=== PATIENT | male | born 1980 | race Caucasian/White ===

== ENCOUNTER 2020-07-05 13:39 | Inpatient (IN) | payer MEDICARE, OTHER ==
[~2020-07-05] VITALS: Ht 185.4 cm; Wt 139.6 kg
[2020-07-05] MEDS ORDERED: InsuLIN REG 1unit/0.01ml Soln (100units/ml) IV ONE (14:15)
[2020-07-05] MEDS ORDERED: ONDANSETRON HCL 4 MG/2 ML VIAL IV ONE (14:15)
[2020-07-05] MEDS ORDERED: SODIUM CHLORIDE 0.9% 1,000 ML IV ONE (14:15)
[2020-07-05 14:54] LABS: Basophils # (auto) 0.1 10 ^3/uL (0-0.2); Eosinophils # (auto) 0.4 10 ^3/uL (0-0.8); Eosinophils % (auto) 4.3 % (0.0-7.0); Hematocrit 42.9 % (41.0-53.0); Hemoglobin 14.3 g/dL (13.5-17.5); Lymphocytes # (auto) 0.7 10 ^3/uL (0.4-5.4); Lymphocytes % (auto) 8.6 % (10.0-50.0); Mean Corpuscular Hemoglobin 29.8 pg (28.0-32.0); Mean Corpuscular Hgb Conc. 33.4 g/dL (32.0-36.0); Monocytes # (auto) 0.5 10 ^3/uL (0-1.3); Monocytes % (auto) 5.7 % (0.0-12.0); Neutrophils # (auto) 6.6 10 ^3/uL (1.6-8.6); Neutrophils % (auto) 80.4 % (37.0-80.0); Platelet Count (auto) 208 10^3/uL (140-450); Red Blood Cells 4.81 10^6/uL (4.5-5.90); Red Cell Distribution Width 13.8 % (11.8-14.3); White Blood Cell 8.2 10^3/uL (4.4-10.8)
[2020-07-05 15:11] LABS: Albumin 3.5 g/dL (3.4-5.0); Calcium 8.5 mg/dL (8.5-10.1); Magnesium 2.3 mg/dL (1.6-2.6); Potassium 4.7 mmol/L (3.5-5.1)
[2020-07-05 15:20] LABS: BUN/Creatinine Ratio 12.7; Bilirubin, Total 0.8 mg/dL (0.2-1.0); Total Protein 7.4 g/dL (6.4-8.2)
[2020-07-05] MEDS ORDERED: LORazepam 0.5 MG TAB PO PRN (18:30)
[2020-07-05] MEDS ORDERED: KETOROLAC TROMETH 60MG/2ML VIAL IM PRN (18:30)
[2020-07-05] MEDS ORDERED: NITROGLYCERIN 0.4 MG SL TAB SL PRN (18:30)
[2020-07-05] MEDS ORDERED: ACETAMINOPHEN 500 MG TAB PO PRN (18:30)
[2020-07-05] MEDS ORDERED: MORPHINE SULF INJ 2 MG/ML SYRINGE 1ML IV PRN (18:30)
[2020-07-05] MEDS ORDERED: LABETALOL HCL 5 MG/ML 4ML SYRINGE IV PRN (18:30)
[2020-07-05] MEDS ORDERED: DEXTROSE (50%) 50ML SYRG IV PRN (18:30)
[2020-07-05] MEDS ORDERED: InsuLIN R (HUMAN) 100 UNITS in SODIUM CHL 0.9% 99 ML IV SCH (18:30)
[2020-07-05] MEDS ORDERED: DOCUSATE CALCIUM 240 MG CAP PO PRN (18:30)
[2020-07-05] MEDS ORDERED: INSULIN LANTUS (GLARGINE) 1 /0.01ml (100units/ml) SC ONE (18:30)
[2020-07-05] MEDS ORDERED: InsuLIN REG 1unit/0.01ml Soln (100units/ml) ONE (19:38)
[2020-07-05 19:51] LABS: Basophils # (auto) 0 10 ^3/uL (0-0.2); Basophils % (auto) 0.7 % (0.0-2.0); Eosinophils # (auto) 0.3 10 ^3/uL (0-0.8); Eosinophils % (auto) 4.6 % (0.0-7.0); Hematocrit 41.6 % (41.0-53.0); Hemoglobin 14.8 g/dL (13.5-17.5); Lymphocytes # (auto) 0.9 10 ^3/uL (0.4-5.4); Lymphocytes % (auto) 13.4 % (10.0-50.0); Mean Corpuscular Hemoglobin 30.1 pg (28.0-32.0); Mean Corpuscular Hgb Conc. 35.5 g/dL (32.0-36.0); Monocytes # (auto) 0.4 10 ^3/uL (0-1.3); Monocytes % (auto) 6.3 % (0.0-12.0); Neutrophils # (auto) 5.2 10 ^3/uL (1.6-8.6); Nucleated Red Blood Cells % 0.2 %; Platelet Count (auto) 197 10^3/uL (140-450); Red Cell Distribution Width 13.7 % (11.8-14.3)
[2020-07-05] MEDS: ACCU-CHEK COMFORT CURVE STRIP VI SCH ×3 (20:00→22:32)
[2020-07-05] MEDS: SODIUM CHLORIDE 0.9% 1,000 ML IV SCH ×2 (20:04→20:30)
[2020-07-05 20:07] LABS: BUN/Creatinine Ratio 14.6; Calcium 8.2 mg/dL (8.5-10.1); Magnesium 2.3 mg/dL (1.6-2.6); Phosphorus 3.1 mg/dL (2.5-4.90)
[2020-07-05 21:22] VITALS: BP 134/91
--- NOTE | 2020-07-05 21:23 | NUR ---
Admit to [facility] NICOLLE SCHMIDT admitted to [facility] via gurney on game trapper. Patient transferred to bed, connected to unit monitoring and weighed by bed scale. Patient oriented to Nubia linton RN, unit, room, bed, and unit policies regarding patient care and visiting hours. All questions and concerns addressed, patient verbalized understanding. NOTE:
[2020-07-05 21:40] VITALS: BP 134/91
[2020-07-05] MEDS ORDERED: SODIUM CHLORIDE 0.9% 1,000 ML IV SCH (22:30)
--- NOTE | 2020-07-05 22:30 | NUR ---
[facility] SWAB SENT
--- NOTE | 2020-07-05 23:00 | NUR ---
urine sent for urinalysis as ordered
[2020-07-05] MEDS ORDERED: NORPTMEDS CO (23:20)
[2020-07-05 23:37] LABS: Urine Bacteria NONE SEEN /hpf (None Seen); Urine Blood Negative /uL (Negative); Urine Mucus FEW (None Seen); Urine Specific Gravity 1.041 (1.001-1.035); Urine WBC <1 /hpf (0 - 3)
[2020-07-06] VITALS (9 sets, daily range): BP systolic 107–142; BP diastolic 47–95
[2020-07-06] MEDS: ACCU-CHEK COMFORT CURVE STRIP VI SCH ×12 (00:10→23:35)
[2020-07-06] MEDS: SODIUM CHLORIDE 0.9% 1,000 ML IV SCH ×4 (00:21→19:54)
--- NOTE | 2020-07-06 00:22 | NUR ---
lab staff for blood draw
[2020-07-06 01:14] LABS: BUN/Creatinine Ratio 13.9; Calcium 7.7 mg/dL (8.5-10.1); Potassium 3.4 mmol/L (3.5-5.1)
--- NOTE | 2020-07-06 03:10 | NUR ---
POTASSIUM LOW INFORMED HOSPITALIST JOESPH OF POTASSIUM 3.4 MMOL PATIENT IS ON INSULIN GTT TELEPHONE ORDER RECEIVED AND VERIFIED
[2020-07-06] MEDS ORDERED: POTASSIUM CHL 20 Meq TABLET PO ONE (03:15)
[2020-07-06 07:28] LABS: Potassium 3.5 mmol/L (3.5-5.1)
[2020-07-06 07:37] LABS: BUN/Creatinine Ratio 12.9; Calcium 7.5 mg/dL (8.5-10.1)
--- NOTE | 2020-07-06 07:40 | NUR ---
REPORT REPORT GIVEN TO TRISH COOK
--- NOTE | 2020-07-06 08:30 | NUR ---
ASSESSMENT PT AWAKE AND A/O X4. VERY TALKATIVE. FOLLOWS SIMPLE COMMANDS. PT ON ROOM AIR WITH O2 SATS OF 94%. LUNGS CLEAR THROUGHOUT. HEART RATE REGULAR AND STRONG PALPABLE PULSES TO ALL EXTREMITIES WITH NO EDEMA NOTED. ABD SOFT WITH + BOWEL SOUNDS. PT STATES LAST BM WAS YESTERDAY. SPT ON REGULAR INSULIN DRIP AT 2 UNITS/HR WITH BLOOD SUGAR AT 0730 OF 236. IVF AND INSULIN DRIP TO #20 TO THE LEFT HAND, SITE BENIGN. DENIES ANY PAIN OR SOB. WANTS TO GO TO THE BATHROOM TO USE THE URINAL. ASSISTED PT TO THE SIDE OF THE BED AND THEN WHEN HE TOLERATED THAT X 1 MINUTE , HE SAT ON THE SIDE OF THE BED FOR 2-3 MINUTES. HE TOLERATED SITTING ON THE SIDE OF THE BED, I ASSISTED HIM TO THE BATHROOM, WHICH HE TOLERATED WELL. PT THEN USED THE URINAL TO VOID 700 ML CLEAR DARK YELLOW URINE. PT THEN BACK TO BED AND VSS ARE STABLE. CONTINUE TO MONITOR.
--- NOTE | 2020-07-06 10:43 | NUR ---
MD/PHONE SPOKE WITH DR HILDA BRITT REGARDING WHETHER TO ADMINISTER ORDERED LANTUS INSULIN PT IS STILL ON THE INSULIN DRIP. HOLD DOSES FOR NOW AND SEE HOW SUGARS TREND AND HE WILL BE BY TO SEE THE PT THIS AFTERNOON.
--- NOTE | 2020-07-06 11:00 | NUR ---
PT REFUSED HIS ORDERED LOVENOX AND PROTONIX. "I DON'T FEEL LIKE I NEED THEM".
[2020-07-06] MEDS: PANTOPRAZOLE 40 MG TAB PO SCH (11:02)
[2020-07-06] MEDS: ENOXAPARIN SOD 40 MG/0.4 ML SYRINGE SC SCH (11:03)
[2020-07-06] MEDS: INSULIN LANTUS (GLARGINE) 1 /0.01ml (100units/ml) SC SCH (11:05)
--- NOTE | 2020-07-06 13:00 | NUR ---
MD VISIT SEEN BY DR HILDA BRITT. GIVE LANTUS INSULIN 15 UNITS SQ AND THEN DC INSULIN DRIP 2 HOURS LATER. CHECK BLOOD SUGAR Q 4 HOURS. NOTIFY NIGHT HOSPITALIST WITH BLOOD SUGAR AT 1999 FOR POSSIBLE MED SURG DOWNGRADE ORDER.
[2020-07-06] MEDS ORDERED: INSULIN LANTUS (GLARGINE) 1 /0.01ml (100units/ml) SC ONE (13:30)
[2020-07-06 14:08] LABS: BUN/Creatinine Ratio 11.8; Calcium 7.5 mg/dL (8.5-10.1)
--- NOTE | 2020-07-06 16:55 | NUR ---
PT'S BLOOD SUGAR OF 221 AND GIVEN 8 UNITS REGULAR INSULIN SQ PER SLIDING SCALE ORDERS AND DC'D INSULIN DRIP PER DR HILDA BRITT. MAY CALL NIGHT HOSPITALIST WITH 2000 BLOOD SUGAR RESULT FOR POSSIBLE DOWNGRADE TO MED SURG BED.
[2020-07-06] MEDS: InsuLIN REG 1unit/0.01ml Soln (100units/ml) SC SCH ×3 (17:00→23:36)
--- NOTE | 2020-07-06 19:15 | NUR ---
Opening Shift Note Recieved report and Assumed care of patient, awake and alert. No S/S of distress/SOB or pain. patient is laying bed speaking on the phone at this time.
--- NOTE | 2020-07-06 20:10 | NUR ---
Hospitalist Paged, To verify if patient can be sent to the Telemetry floor current blood sugar 315 provided 16 units insulin
--- NOTE | 2020-07-06 20:37 | NUR ---
Received call from Hospitalist Per provider patient can be downgraded to the telemetry floor.
--- NOTE | 2020-07-06 20:50 | NUR ---
Provided Report Provided Transfer to Rosa M RN for transfer to room 284A patient will be transfered via wheelchair on telemetry monitoring.
--- NOTE | 2020-07-06 22:10 | NUR ---
Received patient transfer from [facility] per wheelchair alert oriented x 4, placed in the bed comfortably, vital signs checked, not in respiratory distress.
--- NOTE | 2020-07-06 22:10 | NUR ---
[facility] pt transferred to floor NICOLLE SCHMIDT transferred to Room 284A via Wheelchair on roll over loader and All patient medications and personal belongings transfered with patient to receiving floor. Patient care transferred to [facility] endorsed to Rosa M CHAMBERS
[2020-07-07 00:06] VITALS: BP 133/88
[2020-07-07] MEDS: SODIUM CHLORIDE 0.9% 1,000 ML IV SCH ×4 (03:16→21:33)
[2020-07-07] MEDS: ACCU-CHEK COMFORT CURVE STRIP VI SCH ×6 (04:07→23:53)
[2020-07-07] MEDS: InsuLIN REG 1unit/0.01ml Soln (100units/ml) SC SCH ×5 (04:11→19:53)
--- NOTE | 2020-07-07 07:20 | NUR ---
OPENING SHIFT NOTE Assumed care of patient from hourly shift manager RN. Patient is alert and oriented x4, no signs of distress noted, patient denies pain. He was updated on the plan of care and verbalized understanding. Bed is locked, in the lowest position, side rails are up x2 and call light is in reach. Patient was encouraged to call for assistance as needed.
--- NOTE | 2020-07-07 07:25 | NUR ---
Report given to Romina Liriano, patient is resting no distress.
[2020-07-07 09:00] VITALS: BP 128/70
[2020-07-07] MEDS: ENOXAPARIN SOD 40 MG/0.4 ML SYRINGE SC SCH (09:45)
[2020-07-07] MEDS: PANTOPRAZOLE 40 MG TAB PO SCH (09:45)
[2020-07-07] MEDS: INSULIN LANTUS (GLARGINE) 1 /0.01ml (100units/ml) SC SCH (09:47)
--- NOTE | 2020-07-07 10:34 | NUR ---
BALWINDER AT BEDSIDE Updated on the patient status. Plan of care was discussed with the patient and he verbalized understanding.
[2020-07-07] MEDS ORDERED: INSULIN LANTUS (GLARGINE) 1 /0.01ml (100units/ml) SC SCH (10:45)
--- NOTE | 2020-07-07 11:32 | NUR ---
ORDER CLARIFICATION New order for lantus 15 units. order read back and verified.
[2020-07-07] MEDS ORDERED: INSULIN LANTUS (GLARGINE) 1 /0.01ml (100units/ml) SC ONE (11:45)
[2020-07-07 12:43] VITALS: BP 123/77
[2020-07-07 17:00] VITALS: BP 126/75
--- NOTE | 2020-07-07 19:53 | NUR ---
RECEIVED PATIENT FROM DAY SHIFT RN. PATIENT RESTING IN BED. NO S/S OF DISTRESS NOTED. ACCU-CHECK, BS 355, INSULIN GIVEN ORDERED. RE-EDUCATED PATIENT ON DIABETIC DIET. PATIENT VERBALIZED UNDERSTANDING. POC INSTRUCTED AND ENCOURAGED PATIENT TO CALL FOR FERMENTER OPERATOR IF NEEDED. BED IN LOWEST LOCKED POSITION WITH SIDE RAILS UPX 2. CALL MEJIA WITHIN REACH. CONTINUE TO MONITOR FOR CHANGES Q1H AND PRN
[2020-07-07 21:00] VITALS: BP 144/88
[2020-07-08] MEDS: InsuLIN REG 1unit/0.01ml Soln (100units/ml) SC SCH ×7 (00:02→23:55)
--- NOTE | 2020-07-08 00:03 | NUR ---
Accu-check, BS 168. insulin given as ordered. Reinforced on S/S of hypoglycemia. Patient verbalized understanding. Continue to monitor.
[2020-07-08] MEDS: ACCU-CHEK COMFORT CURVE STRIP VI SCH ×6 (03:53→23:45)
--- NOTE | 2020-07-08 03:53 | NUR ---
Accu-check, BS 168. insulin given as ordered. Continue to monitor.
[2020-07-08 05:00] VITALS: BP 120/67
[2020-07-08] MEDS: SODIUM CHLORIDE 0.9% 1,000 ML IV SCH ×3 (05:50→20:14)
--- NOTE | 2020-07-08 07:30 | NUR ---
Opening Shift Note Assumed care of patient, awake, alert and eating breakfast upon entering the room. A/O X 4. No S/S of distress/SOB or pain. BS taken at this time, 214. Educated on lifestyle changes and the need to comply with new health recommendations. Patient states he "feels like he doesn't have much of a life anymore". Patient was counseled on the opportunity to make changes and support available to help with these changes. Instructed on POC and to call for assist PRN. Patient verbalized understanding. Bed is in lowest position and the call light is within reach of the patient. Will continue to monitor for changes Q1hr and PRN.
[2020-07-08 09:00] VITALS: BP 119/74
[2020-07-08] MEDS: ENOXAPARIN SOD 40 MG/0.4 ML SYRINGE SC SCH (10:00)
[2020-07-08] MEDS ORDERED: INSULIN LANTUS (GLARGINE) 1 /0.01ml (100units/ml) SC SCH ×2 (10:00→12:45)
[2020-07-08] MEDS: PANTOPRAZOLE 40 MG TAB PO SCH (10:00)
--- NOTE | 2020-07-08 10:30 | NUR ---
Medication refused Patient refused Lovenox. Will inform hospitalist.
--- NOTE | 2020-07-08 12:30 | NUR ---
Dr. Quintero at bedside Dr. Quintero at bedside discussing the POC and educating the patient on diabetes and the new regimen of medication associated with the disease. Patient stated he would rather be "euthanized" than have type 1 diabetes and he "wasn't going to deal with it". Dr. Quintero counseled the patient. Nurse was asked to step out of the room. Orders given and carried out accordingly.
[2020-07-08 13:00] VITALS: BP 144/91
[2020-07-08 17:00] VITALS: BP 130/85
[2020-07-08] MEDS: INSULIN LANTUS (GLARGINE) 1 /0.01ml (100units/ml) SC SCH (21:59)
[2020-07-08 22:00] VITALS: BP 109/72
[2020-07-09] MEDS: SODIUM CHLORIDE 0.9% 1,000 ML IV SCH ×2 (01:59→08:30)
[2020-07-09] MEDS: ACCU-CHEK COMFORT CURVE STRIP VI SCH ×3 (04:21→12:00)
[2020-07-09] MEDS: InsuLIN REG 1unit/0.01ml Soln (100units/ml) SC SCH ×3 (04:22→12:30)
[2020-07-09 05:00] VITALS: BP 123/67
--- NOTE | 2020-07-09 06:00 | NUR ---
Patient refused new iv insertion. patient pulled out iv on accident. educated the importance of having IV access, patient verbally acknowledge education given and still refuses IV insertion. Will continue to monitor patient. Addendum: 07/09/20 at 0736 by Al Mukherjee RN endorsed to day rn.
--- NOTE | 2020-07-09 07:00 | NUR ---
Opening shift note Assumed care of patient, awake, alert and eating breakfast upon entering the room. A/O X 4. No S/S of distress/SOB or pain. Educated on finding new ways to incorporate activity in to his schedule and the need to comply with new health recommendations. Patient appears to have a better outlook on his prognosis and is actively involved in educating himself. Instructed on POC and to call for assist PRN. Patient verbalized understanding. Bed is in lowest position and the call light is within reach of the patient. Will continue to monitor for changes Q1hr and PRN.
[2020-07-09 09:00] VITALS: BP 141/86
[2020-07-09] MEDS: INSULIN LANTUS (GLARGINE) 1 /0.01ml (100units/ml) SC SCH (10:00)
[2020-07-09] MEDS: ENOXAPARIN SOD 40 MG/0.4 ML SYRINGE SC SCH (10:00)
[2020-07-09] MEDS: PANTOPRAZOLE 40 MG TAB PO SCH (10:00)
--- NOTE | 2020-07-09 10:30 | NUR ---
Medication refused Patient refused his Lovenox again today. Will let Dr. Quintero know when rounding.
[2020-07-09 13:00] VITALS: BP 152/89
[2020-07-09 14:45] VITALS: BP 130/85
--- NOTE | 2020-07-09 15:30 | NUR ---
Discharged Discharge instructions given as ordered. Diabetic information and counseling service providers list given to patient. Encouraged to follow up with PMD as instructed. New prescriptions provided and given to patient. All questions and concerns addressed. Patient verbalized understanding. No IV present. Telemetry unit returned to ICU. Patient walked off the unit with all belongings accompanied by staff. No distress noted at time of departure.
== END 2020-07-09 15:32 | disposition home or self-care (01) | DRG 637 ==
LOC: ER 13:39 → TELE 13:40 → DOU IN ICU 21:51 → TELE-WESTW 07-06 22:10
PROVIDERS: ADMIT Family Medicine; ATTEND Family Medicine
DX: E11.10 Type 2 diabetes mellitus with ketoacidosis without coma (principal); N17.0 Acute kidney failure with tubular necrosis; E87.1 Hypo-osmolality and hyponatremia; Z68.41 Body mass index [BMI] 40.0-44.9, adult; E86.0 Dehydration; E78.5 Hyperlipidemia, unspecified; F41.9 Anxiety disorder, unspecified; E66.9 Obesity, unspecified; Z91.19 Patient's noncompliance with other medical treatment and regimen; Z83.3 Family history of diabetes mellitus; Z87.891 Personal history of nicotine dependence
CPT/HCPCS: 36415; 36600; 71045; 80048; 80053; 81001; 82010; 82805; 82962; 83036; 83735; 83930; 84100; 85025; 87081; 93005; 96361; 96365; 96366; 96372; 96375; G0378; J1815; J2405

== ENCOUNTER → 2020-10-30 | Outpatient (CLI) | payer MEDICARE ==
[~2020-10-30] MED LIST: NORPTMEDS CO
[2020-10-30 11:51] LABS: Albumin 3.6 g/dL (3.4-5.0); Calcium 8.5 mg/dL (8.5-10.1); Potassium 4.5 mmol/L (3.5-5.1)
[2020-10-30 11:56] LABS: BUN/Creatinine Ratio 8.3; Bilirubin, Total 0.4 mg/dL (0.2-1.0); Total Protein 7.3 g/dL (6.4-8.2)
== END | disposition home or self-care (01) ==
LOC: LAB 10:56
PROVIDERS: ATTEND Internal Medicine
DX: E11.9 Type 2 diabetes mellitus without complications (principal); E78.5 Hyperlipidemia, unspecified
CPT/HCPCS: 36415; 80053; 80061; 82043

== ENCOUNTER → 2021-01-03 | Outpatient (CLI) | payer MEDICARE ==
[2021-01-03 17:49] LABS: BUN/Creatinine Ratio 8.7; Calcium 8.9 mg/dL (8.5-10.1); Potassium 4.1 mmol/L (3.5-5.1)
== END | disposition home or self-care (01) ==
LOC: LAB 16:00
PROVIDERS: ATTEND Internal Medicine
DX: E11.9 Type 2 diabetes mellitus without complications (principal)
CPT/HCPCS: 36415; 80048; 83036

== ENCOUNTER → 2022-02-13 | Outpatient (CLI) | payer MEDICARE ==
[2022-02-13 11:16] LABS: Basophils # (auto) 0.1 10 ^3/uL (0-0.2); Basophils % (auto) 1.1 % (0.0-2.0); Eosinophils # (auto) 0.7 10 ^3/uL (0-0.8); Eosinophils % (auto) 10.6 % (0.0-7.0); Hematocrit 40.7 % (41.0-53.0); Hemoglobin 14.2 g/dL (13.5-17.5); Lymphocytes # (auto) 1.7 10 ^3/uL (0.4-5.4); Lymphocytes % (auto) 24.5 % (10.0-50.0); Mean Corpuscular Hemoglobin 29.3 pg (28.0-32.0); Mean Corpuscular Volume 83.7 fL (80.0-100.0); Monocytes # (auto) 0.4 10 ^3/uL (0-1.3); Monocytes % (auto) 6.3 % (0.0-12.0); Neutrophils % (auto) 57.5 % (37.0-80.0); Nucleated Red Blood Cells % 0.2 %; Red Blood Cells 4.86 10^6/uL (4.5-5.90)
[2022-02-13 11:23] LABS: Urine Bacteria NONE SEEN /hpf (None Seen); Urine Blood Negative /uL (Negative); Urine Specific Gravity 1.025 (1.001-1.035); Urine WBC <1 /hpf (0 - 3)
[2022-02-13 12:03] LABS: Potassium 4.2 mmol/L (3.5-5.1)
[2022-02-13 12:10] LABS: Albumin 3.7 g/dL (3.4-5.0); BUN/Creatinine Ratio 9.8; Bilirubin, Total 0.5 mg/dL (0.2-1.0); Calcium 8.7 mg/dL (8.5-10.1); Total Protein 7.1 g/dL (6.4-8.2)
== END | disposition home or self-care (01) ==
LOC: LAB 10:06
PROVIDERS: ATTEND Internal Medicine
DX: I12.9 Hypertensive chronic kidney disease with stage 1 through stage 4 chronic kidney disease, or unspecified chronic kidney disease (principal); E11.22 Type 2 diabetes mellitus with diabetic chronic kidney disease; N18.2 Chronic kidney disease, stage 2 (mild); F41.9 Anxiety disorder, unspecified
CPT/HCPCS: 36415; 80053; 80061; 81001; 82043; 83036; 84443; 85025

== ENCOUNTER 2022-04-03 16:55 | Emergency (ER) | payer MEDICARE, MEDICAID ==
[~2022-04-03] VITALS: Ht 182.9 cm; Wt 128.6 kg
[2022-04-03 17:24] VITALS: BP 133/93
[2022-04-03] MEDS ORDERED: TRAM-297 PO (19:28)
== END 2022-04-03 19:50 | disposition home or self-care (01) ==
LOC: ER 16:55
DX: M79.604 Pain in right leg (principal); E11.9 Type 2 diabetes mellitus without complications; E78.5 Hyperlipidemia, unspecified; Z90.89 Acquired absence of other organs; Z79.899 Other long term (current) drug therapy
CPT/HCPCS: 82962; 93971

== ENCOUNTER → 2022-06-15 | Outpatient (CLI) | payer MEDICARE, MEDICAID ==
[~2022-06-15] MED LIST changes: +TRAM-297 PO
[2022-06-15 13:31] LABS: Basophils # (auto) 0.1 10 ^3/uL (0-0.2); Basophils % (auto) 0.9 % (0.0-2.0); Eosinophils # (auto) 0.6 10 ^3/uL (0-0.8); Eosinophils % (auto) 8.9 % (0.0-7.0); Hematocrit 42.8 % (41.0-53.0); Lymphocytes # (auto) 1.7 10 ^3/uL (0.4-5.4); Lymphocytes % (auto) 25.1 % (10.0-50.0); Mean Corpuscular Hemoglobin 27.9 pg (28.0-32.0); Mean Corpuscular Hgb Conc. 32.7 g/dL (32.0-36.0); Mean Corpuscular Volume 85.1 fL (80.0-100.0); Monocytes # (auto) 0.4 10 ^3/uL (0-1.3); Monocytes % (auto) 6.4 % (0.0-12.0); Neutrophils % (auto) 58.7 % (37.0-80.0); Nucleated Red Blood Cells % 0.1 %; Red Blood Cells 5.03 10^6/uL (4.5-5.90); Red Cell Distribution Width 14.3 % (11.8-14.3); White Blood Cell 6.9 10^3/uL (4.4-10.8)
[2022-06-15 13:46] LABS: Potassium 4.6 mmol/L (3.5-5.1)
[2022-06-15 13:54] LABS: Albumin 3.8 g/dL (3.4-5.0); BUN/Creatinine Ratio 10.8; Bilirubin, Total 0.4 mg/dL (0.2-1.0); Calcium 8.9 mg/dL (8.5-10.1); Total Protein 7.2 g/dL (6.4-8.2)
[2022-06-15 13:57] LABS: Urine Bacteria NONE SEEN /hpf (None Seen); Urine Blood Negative /uL (Negative); Urine Specific Gravity 1.025 (1.001-1.035); Urine WBC 1 /hpf (0 - 3)
== END | disposition home or self-care (01) ==
LOC: LAB 12:45
PROVIDERS: ATTEND Internal Medicine
DX: Z00.00 Encounter for general adult medical examination without abnormal findings (principal); I10 Essential (primary) hypertension; E11.9 Type 2 diabetes mellitus without complications; F41.9 Anxiety disorder, unspecified; F48.1 Depersonalization-derealization syndrome
CPT/HCPCS: 36415; 80053; 80061; 81001; 82043; 83036; 85025

== ENCOUNTER → 2023-06-11 | Outpatient (CLI) | payer MEDICARE, MEDICAID ==
[2023-06-11 13:14] LABS: Alanine Aminotransferase 27 U/L (7-40); Albumin 4.4 g/dL (3.2-4.8); Alkaline Phosphatase 53 U/L (46-116); Anion Gap 5 (5-15); Aspartate Aminotransferase 15 U/L (13-40); BUN/Creatinine Ratio 10.3 (10.0-20.0); Blood Urea Nitrogen 12 mg/dL (9-23); Calcium 9.2 mg/dL (8.5-10.1); Carbon Dioxide 28 mmol/L (20-30); Chloride 107 mmol/L (98-107); Glucose 110 mg/dL (74-106); LDL Cholesterol 103 mg/dL (< 100); Potassium 4.4 mmol/L (3.5-5.1); Sodium 140 mmol/L (136-145); Triglycerides 108 mg/dL (< 150)
[2023-06-11 13:15] LABS: Bilirubin, Total 0.7 mg/dL (0.2-1.0); Cholesterol 165 mg/dL (< 200); HDL Cholesterol 44 mg/dL (40-59); Total Protein 7.1 g/dL (5.7-8.2)
[2023-06-11 13:19] LABS: Creatinine, Urine 30.92 mg/dL (30.0-125.0)
[2023-06-11 13:21] LABS: Micro Albumin < 3.0 mg/L (<30.0)
== END | disposition home or self-care (01) ==
LOC: LAB 12:26
PROVIDERS: ATTEND Internal Medicine
DX: E11.22 Type 2 diabetes mellitus with diabetic chronic kidney disease (principal); N18.2 Chronic kidney disease, stage 2 (mild); E78.5 Hyperlipidemia, unspecified
CPT/HCPCS: 36415; 80053; 80061; 82043; 82570; 83036; 84443

== ENCOUNTER → 2024-03-24 | Outpatient (CLI) | payer MEDICARE, MEDICAID ==
[2024-03-24 13:54] LABS: LDL Cholesterol 107 mg/dL (< 100); Triglycerides 158 mg/dL (< 150)
[2024-03-24 13:56] LABS: Cholesterol 174 mg/dL (< 200); HDL Cholesterol 41 mg/dL (40-59)
== END | disposition home or self-care (01) ==
LOC: LAB 13:29
PROVIDERS: ATTEND Internal Medicine
DX: E11.9 Type 2 diabetes mellitus without complications (principal)
CPT/HCPCS: 36415; 80061

== ENCOUNTER → 2024-03-24 | Outpatient (CLI) | payer MEDICARE, MEDICAID ==
[2024-03-24 15:29] LABS: Urine Bacteria None Seen /hpf (None Seen)
[2024-03-24 15:33] LABS: Basophils # (auto) 0.1 10 ^3/uL (0-0.2); Eosinophils # (auto) 0.4 10 ^3/uL (0-0.8); Hematocrit 42.3 % (41.0-53.0); Hemoglobin 14.7 g/dL (13.5-17.5); Lymphocytes # (auto) 1.3 10 ^3/uL (0.4-5.4); Lymphocytes % (auto) 20.5 % (10.0-50.0); Mean Corpuscular Hemoglobin 29.2 pg (28.0-32.0); Mean Corpuscular Hgb Conc. 34.7 g/dL (32.0-36.0); Mean Corpuscular Volume 84.4 fL (80.0-100.0); Monocytes # (auto) 0.4 10 ^3/uL (0-1.3); Neutrophils # (auto) 4.1 10 ^3/uL (1.6-8.6); Neutrophils % (auto) 65.5 % (37.0-80.0); Red Blood Cells 5.02 10^6/uL (4.5-5.90); Red Cell Distribution Width 13.7 % (11.8-14.3); White Blood Cell 6.3 10^3/uL (4.4-10.8)
[2024-03-24 15:35] LABS: Urine Blood Negative /uL (Negative); Urine Clarity Clear (Clear); Urine Color Light-Yellow (Yellow); Urine Protein, UAD Negative (Negative); Urine Specific Gravity 1.021 (1.001-1.035); Urine Urobilinogen Normal (Negative); Urine WBC <1 /hpf (0 - 3)
[2024-03-24 16:03] LABS: Alanine Aminotransferase 19 U/L (7-40); Albumin 4.2 g/dL (3.2-4.8); Alkaline Phosphatase 60 U/L (46-116); Anion Gap 8 (5-15); Aspartate Aminotransferase 9 U/L (13-40); BUN/Creatinine Ratio 9.3 (10.0-20.0); Blood Urea Nitrogen 12 mg/dL (9-23); Calcium 9.1 mg/dL (8.7-10.4); Carbon Dioxide 28 mmol/L (20-30); Chloride 103 mmol/L (98-107); Glucose 200 mg/dL (74-106); Potassium 4.4 mmol/L (3.5-5.1); Sodium 139 mmol/L (136-145)
[2024-03-24 16:04] LABS: Bilirubin, Total 0.5 mg/dL (0.2-1.0); Total Protein 6.7 g/dL (5.7-8.2)
[2024-03-24 16:16] LABS: Creatinine, Urine 161.16 mg/dL (30.0-125.0)
== END | disposition home or self-care (01) ==
LOC: LAB 15:11
PROVIDERS: ATTEND Internal Medicine
DX: E11.9 Type 2 diabetes mellitus without complications (principal); E78.5 Hyperlipidemia, unspecified
CPT/HCPCS: 36415; 80053; 81001; 82043; 82570; 83036; 85025